=== PATIENT | male | born 1950 | race Caucasian/White ===

== ENCOUNTER 2020-03-02 05:58 | Inpatient (IN) ==
--- NOTE | 2020-02-16 15:54 | PAT Medication Instructions ---
Medication Instructions Date of Service February 16, 2020 Home Medications B-complex with vitamin C 1 tab PO DAILY allopurinol 300 mg tablet 300 mg PO QAM aspirin 81 mg tablet,delayed release 81 mg PO QAM lisinopril 20 mg tablet 20 mg PO QAM simvastatin 20 mg tablet 20 mg PO HS ASK your prescriber and surgeon aspirin 81 mg tablet,delayed release 81 mg PO QAM DO NOT take the morning of surgery B-complex with vitamin C 1 tab PO DAILY lisinopril 20 mg tablet 20 mg PO QAM Take morning of surgery With a small sip of water, OTHERWISE NOTHING TO EAT OR DRINK AFTER MIDNIGHT: allopurinol 300 mg tablet 300 mg PO QAM Take evening before surgery simvastatin 20 mg tablet 20 mg PO HS Other Notes If you have any questions please call us at [phone] or [phone] or [phone] or [phone]
--- NOTE | 2020-02-17 13:49 | Anesthesiology Consultation ---
Date of Service February 17, 2020 Assessment & Plan (1) Encounter for pre-operative examination: COVID Status: As of 02/15 nurse assessment, patient denies travel to endemic area, known exposure/sick contacts, or symptoms of COVID19. Preoperative COVID19 testing to be completed prior to surgery. Chart Review Chart Review: Acceptable Risk for Surgery ([facility]) and Patient seen in Pre Admission Testing Teaching & Discussion Instructed NPO after midnight before surgery, except medications with 15 cc of water. Medication instructions provided according to the PAT guidelines. History Surgery Operation Date: 03/02/20 12:55 Proposed Procedures p C6 Corpectomy, Spinal Cord Monitoring - Gabe Farrell DO Height/Weight Height: 6 ft Weight: 125.8 kg Allergies Allergy/AdvReac Type Severity Reaction Status Date / Time indomethacin Allergy Intermediate "MAKES ME Verified 02/15/20 13:39 LOOPY" Medications Home Medications Medication Instructions Recorded Confirmed Last Taken B-complex with vitamin C 1 tab PO DAILY 11/15/19 02/15/20 Unknown allopurinol 300 mg tablet 300 mg PO QAM 11/15/19 02/15/20 Unknown aspirin 81 mg tablet,delayed 81 mg PO QAM 11/15/19 02/15/20 Unknown release lisinopril 20 mg tablet 20 mg PO QAM 11/15/19 02/15/20 Unknown simvastatin 20 mg tablet 20 mg PO HS 11/15/19 02/15/20 Unknown Past Medical History Medical History (Updated 02/20/20 @ 14:32 by Jose Carlos Hamilton) BPH (benign prostatic hyperplasia) Cervical spinal stenosis Cervical spine fracture (Chronic) Small nondisplaced avulsion from the joão-lateral margin of the C5-C6 facet Diabetes mellitus, type 2 DIET CONTROLLED Glaucoma Hx of gout Hyperlipidemia (Chronic) Hypertension Liver enzyme elevation Obesity Osteoarthritis Peripheral neuropathy PTSD (post-traumatic stress disorder) (Chronic) Umbilical hernia (Chronic) Exercise / Class Metabolic Activity II 4-5 Yardwork/Stairs/Walk up hill Past Family History Family History Other No significant family history Past Surgical History Surgical History History of colonoscopy History of hernia surgery RT/LEFT INGUINAL History of tooth extraction Hx of knee surgery Hx of transurethral resection of prostate Hx of vasectomy Past Anesthesia History No Hx of Anesthesia Complications and No Family Hx of Anesthesia Complications History of PONV No Hx of PONV and No Hx of Motion Sickness STOP BANG Total 4 Social History Smoking Status: Former smoker tobacco type: cigarettes Do You Dip or Chew Tobacco: No Smoking End Date: 20 YEARS AGO Hx Alcohol Use: Yes Alcohol type: hard liquor alcohol intake frequency: 0-2 drinks per day Alcohol Intake Frequency Comment: 3 DRINKS DAILY Hx Substance Use: No Review of Systems Pt denies any recent chest pain, shortness of breath, palpitations, cough, fever or URI. Physical Exam Vital Signs BP: 133/83 P: 82bpm SPO2: 95% RA T: 98.2 F R: 16 ENMT Mouth: + dentition abnormality (few missing molars) and + macroglossia; no chipped teeth and no loose teeth Thyromental Distance: < 3.5 Finger Breadths (3? difficult to palpate with soft cervical collar on) Mallampati Class: III Neck + limited neck extension and + facial hair (small mustache) Patient wearing soft cervical collar. Due to h/o fracture and pt's neck pain, did not ask him to extend neck. He states ROM is limited. Respiratory normal respiratory effort Auscultation: lungs clear to auscultation bilaterally Cardiovascular Rate/Rhythm: regular rate and regular rhythm Heart Sounds: no murmur Extremities: no edema Testing Laboratory Results 02/17/20 14:03 02/17/20 14:03 PT 10.3 Seconds (9.0-12.0) 02/17/20 14:03 INR 1.0 (0.9-1.1) 02/17/20 14:03 APTT 30.5 Seconds (21.0-31.0) 02/17/20 14:03 Urine Color Yellow 02/17/20 Unknown Urine Appearance Clear (Clear) 02/17/20 Unknown Urine pH 7.0 (4.5-7.5) 02/17/20 Unknown Ur Specific Hugo 1.018 (1.000-1.030) 02/17/20 Unknown Urine Protein Negative (Negative) 02/17/20 Unknown Urine Glucose (UA) 2+ (Negative) H 02/17/20 Unknown Urine Ketones Trace (Negative) H 02/17/20 Unknown Urine Nitrite Negative (Negative) 02/17/20 Unknown Ur Leukocyte Esterase Trace (Negative) H 02/17/20 Unknown Urine WBC (Auto) 5-10 /hpf (0-5) H 02/17/20 Unknown Urine RBC (Auto) 0-4 /hpf (0-4) 02/17/20 Unknown U Hyaline Cast (Auto) 1-5 /lpf (0-5) 02/17/20 Unknown U Epithel Cells (Auto) 5-10 /lpf (0-5) H 02/17/20 Unknown Urine Bacteria (Auto) Negative (Negative) 02/17/20 Unknown Blood Type O Positive 02/17/20 14:03 Antibody Screen NEGATIVE 02/17/20 14:03 Chest X-Ray Date: 02/17/20 Findings: + NAD
--- NOTE | 2020-02-17 14:32 | XRay Report ---
TWO VIEW CHEST CLINICAL HISTORY: Preoperative examination. FINDINGS: PA and lateral chest radiographs are compared to chest x-ray and chest CT dated 08/28/2007. The heart is mildly enlarged noting atherosclerotic calcification of the thoracic aorta. The pulmona ry vasculature is noncongested. There is bibasilar scarring/atelectasis. No airspace consolidation or pleural effusion is identified. There is no pneumothorax. The skeletal structures are osteopenic. Th e bony thorax appears intact. Degenerative change is seen throughout the thoracic spine. IMPRESSION: No active disease in the chest. ACT 112: Negative or not required by law. Electronically signed by: James Walton M.D. 02/17/2020 2:31 PM
[2020-02-17 16:01] LABS: Basophils # (auto) 0.03 K/uL (0-0.2); Basophils % (auto) 0.3 %; Eosinophils # (auto) 0.21 K/uL (0-0.5); Eosinophils % (auto) 2.4 %; Hematocrit (blood only) 45.8 % (42-52); Hemoglobin 15.7 g/dL (14.0-18.0); Immature Granulocytes # (auto) 0.04 K/uL (0.00-0.02); Immature Granulocytes % (auto) 0.5 %; Lymphocytes # (auto) 2.24 K/uL (1.2-3.4); Lymphocytes % (auto) 25.4 %; Mean Corpuscular Hgb Conc 34.3 g/dL (32-36); Mean Corpuscular Volume 87.6 fL (80-100); Mean Platelet Volume 10.4 fL (7.4-10.4); Monocytes # (auto) 0.58 K/uL (0.11-0.59); Monocytes % (auto) 6.6 %; Neutrophils # (auto) 5.71 K/uL (1.4-6.5); Neutrophils % (auto) 64.8 %; Platelet Count 255 K/uL (130-400); RDW Coefficient of Variation 13.4 % (11.5-14.5); Red Blood Count 5.23 M/uL (4.7-6.1); White Blood Count 8.81 K/uL (4.8-10.8)
[2020-02-17 16:05] LABS: Appearance Urine Clear (Clear); Bacteria Urine Automated Negative (Negative); Bilirubin Urine Negative (Negative); Blood Urine Negative (Negative); Color Urine Yellow; Glucose Urine UA 2+ (Negative); Ketones Urine Trace (Negative); Leukocyte Esterase Urine Trace (Negative); Nitrite Urine Negative (Negative); Protein Urine Negative (Negative); RBC Urine Automated 0-4 /hpf (0-4); Specific Gravity Urine 1.018 (1.000-1.030); Urobilinogen Urine Negative (Negative)
[2020-02-17 16:08] LABS: BUN Creatinine Ratio 14.4 (10-20); Creatinine Clr Calc Pharmacy 112.1 ml/min; Est GFR (African American) 102.8; Est GFR (Non-African American) 88.7; Potassium 3.6 mmol/L (3.5-5.1)
[2020-02-17 16:10] LABS: Partial Thromboplastin Ratio 1.1; Partial Thromboplastin Time 30.5 Seconds (21.0-31.0); Prothrombin Time 10.3 Seconds (9.0-12.0)
[2020-03-02] MEDS ORDERED: LR 15ML/HR IV SCH (06:00)
[2020-03-02] MEDS ORDERED: CeleBREX 200 MG CAP PO SCH (06:00)
[2020-03-02] MEDS ORDERED: ACETAMINOPHEN 500 MG TAB PO SCH (06:00)
[2020-03-02] MEDS ORDERED: CEFAZOLIN 3000MG 72.5 ML IV SCH (06:00)
[2020-03-02] MEDS ORDERED: GABAPENTIN 300 MG CAP PO SCH (06:00)
[2020-03-02] MEDS ORDERED: PROMETHAZINE HCL 6.25 MG in SODIUM CHLORIDE 0.9% 50 ML IV PRN (06:50)
[2020-03-02] MEDS ORDERED: HYDROmorphone INJ 1 MG/ML SYRINGE IV PRN ×2 (06:50→11:47)
[2020-03-02] MEDS ORDERED: ONDANSETRON INJ 2 MG/ML 2 ML VIAL IV PRN ×2 (06:50→11:47)
[2020-03-02] MEDS ORDERED: LABETALOL HCL IV 5 MG/ML 20ML IV PRN (06:50)
[2020-03-02] MEDS ORDERED: ATROPINE SULFATE 0.1 MG/ML 10ML SYR IV PRN (06:50)
[2020-03-02] MEDS ORDERED: PROPOFOL IV EMULSION 10 MG/ML 100 ML VIAL IV ONE (06:55)
[2020-03-02] MEDS ORDERED: LIDOCAINE HCL 2% 2 ML VIAL/AMP(20MG/ML) INFIL ONE (07:00)
[2020-03-02] MEDS ORDERED: NEOSTIGMINE METHYLSULFATE 1 MG/ML 10ML VIAL ONE (07:00)
[2020-03-02] MEDS ORDERED: ePHEDrine sulfate 50 MG/ML SYR ONE (07:00)
[2020-03-02] MEDS ORDERED: GLYCOPYRROLATE 0.2 MG/ML VIAL ONE (07:00)
[2020-03-02] MEDS ORDERED: PHENYLEPHRINE 100MCG/ML 5ML SYR ONE (07:00)
[2020-03-02] MEDS ORDERED: PROPOFOL IV EMULSION 10 MG/ML 20 ML VIAL IV ONE ×2 (07:00→08:41)
[2020-03-02] MEDS ORDERED: BACITRACIN INJ 50,000 UNIT VIAL ONE (07:00)
[2020-03-02] MEDS ORDERED: LARYING-O-JET KIT (LTA) ONE (07:00)
[2020-03-02] MEDS ORDERED: DEXAMETHASONE SOD INJ 4 MG/ML VIAL ONE (07:00)
[2020-03-02] MEDS ORDERED: ONDANSETRON INJ 2 MG/ML 2 ML VIAL ONE (07:00)
[2020-03-02] MEDS ORDERED: MIDAZOLAM HCL 1 MG/ML 2ML VIAL ONE (07:00)
[2020-03-02] MEDS ORDERED: ROCURONIUM BROMIDE 10 MG/ML 5 ML VIAL IV ONE (07:00)
[2020-03-02] MEDS ORDERED: fentaNYL citrate 100 MCG/2 ML VIAL ONE (07:01)
--- NOTE | 2020-03-02 07:19 | History & Physical Bridge Note ---
Date of Service March 02, 2020 History & Physical Bridge Note I have examined the patient, reviewed the History & Physical and in the interval since the performance of the History & Physical I have noted the following changes of clinical significance: no changes noted
--- NOTE | 2020-03-02 07:20 | History & Physical Report ---
Date of Service March 02, 2020 Assessment & Plan (1) Myelopathy concurrent with and due to spinal stenosis of cervical region: C6 corpectomy Present on Admission?: Yes History of Present Illness Chief Complaint: Neck and arm pain Primary Care Provider: Mony Perez PA-C This is a 6-year-old male who presents with worsening neck and arm symptoms after failing course of nonoperative care is here for surgical invention. Allergies Allergy/AdvReac Type Severity Reaction Status Date / Time indomethacin Allergy Intermediate "MAKES ME Verified 03/02/20 06:43 LOOPY" Home Medications Home Medications Medication Instructions Recorded Confirmed Type B-complex with vitamin C 1 tab PO DAILY 11/15/19 03/02/20 History allopurinol 300 mg tablet 300 mg PO QAM 11/15/19 03/02/20 History aspirin 81 mg tablet,delayed 81 mg PO QAM 11/15/19 03/02/20 History release lisinopril 20 mg tablet 20 mg PO QAM 11/15/19 03/02/20 History simvastatin 20 mg tablet 20 mg PO HS 11/15/19 03/02/20 History Past Med/Surg History Family History Other No significant family history Social History Preferred Language: Macanese Communication Ability: Effective Visual Impairment: Limited Hearing Ability: Normal Sewer Pipe Offbearer Required: No Beliefs That Will Affect Care: None marital status: Current Living Situation: Spouse current occupational status: retired Feels Safe at Home: Yes Safety Concerns: Feels Safe At This Time Smoking Status: Former smoker Tobacco Type: cigarettes ; Do You Dip or Chew Tobacco: No ; Smoking End Date: 20 YEARS AGO ; Second Hand Exposure: Yes ; Tobacco Cessation Education Requested by Patient: No Hx Alcohol Use: Yes Alcohol type: hard liquor Alcohol type Comment: bourbon Alcohol Intake Frequency: Daily Hx Substance Use: No Physical Exam Physical Exam: Patient is alert and oriented with evidence of upper motor neuron signs. Heart regular rate and rhythm. Lungs clear to auscultation. Results & Data Vital Signs (Past 12 Hours) Vital Signs Temp Pulse Resp BP Pulse Ox 03/02/20 06:58 37.0 C 87 18 168/98 H 96
[2020-03-02] MEDS ORDERED: HYDROmorphone INJ 2 MG/ML SYR/VIAL ONE (08:05)
[2020-03-02] MEDS ORDERED: FLOSEAL HEMOSTATIC MATRIX 10ML TOP ONE (08:24)
--- NOTE | 2020-03-02 10:09 | Operative Report ---
Post Operative Report Pre & Post Diagnosis Operation Date: 03/02/20 07:45 Pre-Op Diagnosis: Cervical spinal stenosis with myelopathy Post-Op Diagnosis: Same I identified the patient and participated in the time-out.: Yes Procedure Operation Date: 03/02/20 07:45 Actual Procedures #1 anterior cervical corpectomy with bilateral foraminotomies C6. #2 anterior cervical arthrodesis C5-C7. #3 placement peek cage 25 mm in height at C5-C7. #4 placement locally harvested morselized autograft combined with DBM and interbody cage. #5 application of 5 complete screws from C5-C6. Surgeon Gabe Farrell, DO Manager Business Operations Bib Cruz Estimated Blood Loss 25 Findings See Below Patient is 6 foot tall weighing over 126 kg with a BMI in excess of 37. The patient's body habitus did create significant technical difficulty from patient positioning to exposure to the operative procedure. He required her deepest retractors and longest instruments in order to perform his procedure this added at least 50% increase to the operative time. Specimens None Indications This is a 69-year-old male that presents with above-mentioned diagnosis after noting decline in neurologic function we are here for the above-mentioned procedure. Description of Procedure Patient was met with identified informed consent obtained. Patient was then taken to the operative suite underwent an patient placed in a supine position Trevor table met head Monae grease maker head. All bony prominences well-padded eyes inspected to ensure no external pressure placed upon them. This point the anterior cervical spine was prepped and draped in normal sterile fashion. With assistance of fluoroscopy identified the C6 vertebral body a transverse incision was placed on the right anterior aspect of the cervical spine overlying his region. Sharp dissection with assistance of bipolar electrocautery was performed until exposing the anterior cervical spine from C5-C7. Self-retaining retractors were placed. Then performed a complete discectomy of C5-6 out to the uncovertebral joints bilaterally followed by C6-7. [place] distracting pins were utilized to assist in visualization. I then performed a complete corpectomy of C6 including removal of all posterior annular fibers longitudinal ligament bilateral foraminotomies at the see 5 6 and 6 7 levels. After complete decompression endplates were burred to subcortical bleeding bone and a 25 mm peek cage filled with locally harvested morselized autograft and DBM tapped in position. Distracting apparatus was removed all anterior osteophytes burred to a smooth cortical surface of 5 complete and screws applied with the assistance of fluoroscopy. The incision was then copiously irrigated explored to ensure no damage to surrounding structures remaining bleeding. A 15 round DELFINA drain was then inserted. Incision was closed with 2 Vicryl in the fashion of 4 Monocryl for final skin closure. Steri-Strip sterile dressing was placed. Patient waken taken PACU stable condition. Please note spinal cord monitoring was last that t he procedure no changes noted. Lastly Bib Cruz was present at the entire procedure involved the patient positioning complex portions of the surgery and final skin closure. I attest to the content of the Intraoperative Record and any orders documented therein. Any exceptions are noted below.
--- NOTE | 2020-03-02 10:32 | Fluoroscopy Report ---
FL cervical 2-3V CLINICAL HISTORY: CORPECTOMY C6 COMPARISON STUDY: None. FLUOROSCOPY TIME: 12 seconds. FINDINGS: 2 fluoroscopic spot images of the cervical spine. Anterior cervical discectomy and fusion f rom C5 through C7 with a C6 corpectomy and bone graft. The hardware appears intact. IMPRESSION: Fluoroscopy provided for C5-C7 ACDF. ACT 112: Negative or not required by law. Electronically signed by: Madan Ruano M.D. 03/02/2020 10:30 AM
--- NOTE | 2020-03-02 11:29 | Anesthesiology Progress Note ---
Date of Service March 02, 2020 Anesthesia Post Procedure Vital Signs Vital Signs: Temp Pulse Pulse Resp BP BP Pulse Ox 03/02/20 11:20 36.8 C 78 16 128/84 96 03/02/20 11:10 78 16 117/78 96 03/02/20 11:00 70 16 118/88 96 03/02/20 10:50 36.8 C 73 16 124/85 96 03/02/20 10:40 70 16 136/92 97 03/02/20 10:30 67 16 141/86 H 97 03/02/20 10:23 36.2 C L 72 16 142/88 H 97 03/02/20 06:58 37.0 C 87 18 168/98 H 96 Pain Intensity Bilateral Neck: Pain Intensity: 5 Transfer of Care Handoff Completed per policy Notes Mental Status: alert / awake / arousable Patient Amnestic to Procedure: Yes Nausea / Vomiting: adequately controlled Pain: adequately controlled Airway Patency, RR, SpO2: stable & adequate BP & HR: stable & adequate Hydration State: stable & adequate Anesthetic Complications: no major complications apparent
[2020-03-02] MEDS ORDERED: HYDROmorphone INJ 0.5 MG/0.5 ML SYR IV PRN (11:47)
[2020-03-02] MEDS ORDERED: NALOXONE HCL 0.4 MG/1 ML VIAL/CARP IV PRN (11:47)
[2020-03-02] MEDS ORDERED: LORazepam 0.5 MG/1 ML VIAL IV PRN (11:47)
[2020-03-02] MEDS ORDERED: DO NOT ADMINISTER PNEUMOCOCCAL VACCINE PRN (11:47)
[2020-03-02] MEDS ORDERED: ACETAMINOPHEN 1,000 MG/100 ML VIAL IV PRN (11:47)
[2020-03-02] MEDS ORDERED: OXYCODONE HCL IR 5 MG TAB (IMMEDIATE RELEASE) PO PRN (11:47)
[2020-03-02] MEDS ORDERED: DEXAMETHASONE SOD PHOSPHATE 8 MG in SYRINGE 0 ML IV PRN (11:47)
[2020-03-02] MEDS ORDERED: METOCLOPRAMIDE HCL INJ 5 MG/ML 2 ML VIAL IV PRN (11:47)
[2020-03-02] MEDS ORDERED: SOD PHOSPHATE/SOD BIPHOSPHATE ENEMA 132 ML BTL PR PRN (11:47)
[2020-03-02] MEDS ORDERED: ACETAMINOPHEN 500 MG TAB PO PRN (11:47)
[2020-03-02] MEDS ORDERED: PROMETHAZINE HCL 12.5 MG in SODIUM CHLORIDE 0.9% 50 ML IV PRN (11:47)
[2020-03-02] MEDS ORDERED: MAGNESIUM HYDROXIDE SUSP 30 ML UDC PO PRN (11:47)
[2020-03-02] MEDS ORDERED: DO NOT ADMINISTER FLU VACCINE PRN (11:47)
[2020-03-02] MEDS ORDERED: ONDANSETRON 4 MG OD TAB PO PRN (11:47)
[2020-03-02] MEDS ORDERED: FAMOTIDINE 20 MG TAB PO PRN (11:47)
[2020-03-02] MEDS ORDERED: TRAMADOL HCL 50 MG TABLET PO PRN (11:47)
[2020-03-02] MEDS ORDERED: LORazepam 0.5 MG TAB PO PRN (11:47)
[2020-03-02] MEDS ORDERED: ALUMINUM/MAGNESIUM SUSP 30 ML UDC PO PRN (11:47)
[2020-03-02] MEDS ORDERED: RACEPINEPHRINE 2.25% NEBU SOLN 0.5 ML VIAL INH PRN (11:47)
[2020-03-02] MEDS: SODIUM CHLORIDE 0.9% 1000ML 1,000 ML IV SCH ×2 (12:15→18:19)
--- NOTE | 2020-03-02 12:17 | Consultation ---
Date of Consultation March 02, 2020 Assessment & Plan (1) S/P spinal surgery: Post op day# 0 S/P anterior cervical corpectomy with bilateral foraminotomies C6, anterior cervical arthrodesis C5-C7 with case placement by Dr Jami BOWERS#25ml -pain management per ortho -wound management per ortho -PT/OT as appropriate -DVT prophylaxis per ortho -bowel regimen -monitor H&H for acute blood loss anemia; pre-op Hgb: 15.7 (2) History of hypertension: Stable -Continue lisinopril with holding parameters (3) Diabetes mellitus, type 2: Diet controlled post op BS -Novolog sliding scale per protocol, anticipate will need tightened when pt resumes full diet -A1c in AM (4) Hyperlipidemia: -Continue simvastatin (5) Alcohol use: 3 drinks a day. No h/o ETOH withdrawal -Monitor for alcohol withdrawal -Ativan prn (6) Hx of gout: -Continue allopurinol DVT Prophylaxis -SCDs per ortho Disposition per primary service Follows with Mony Perez at [facility] for routine care Pt was seen and care coordinated with Dr Oquendo. See addendum Pt will be followed by Dr Eng starting 03/03/2020 Thank you for this consultation. We will follow the patient with you during their hospital stay. You can reach a member of the [facility] Hospitalist Team 23/03 via pager @ . Supervising Physician Co-Signing Physician Notes I, Dr. Afshin Oquendo, have seen and examined the patient SamiHiginio with physician anesthesia assistant and would like to comment that on Physical Exam General: no acute distress Neck: neck in brace and anterior neck with DELFINA drain Chest: regular rate Lung: clear to auscultation, no wheezing Abdomen: soft, nontender, positive bowel sounds Neuro/Extremities: able to move all extremities ASSESSMENT AND PLAN -This is a patient of Dr. Farrell with pre-op society Cervical spinal stenosis with myelopathy and status post cervical spine surgery on 03/02/2020 with hospitalist medicine asked to follow as medicine consult service (s/p anterior cervical corpectomy with bilateral foraminotomies C6. anterior cervical arthrodesis C5-C7. placement peek cage 25 mm in height at C5-C7. placement locally harvested morselized autograft combined with DBM and interbody cage. application of 5 complete screws from C5-C6.) -type 2 diabetes mellitus without organizational development consultant current of insulin: hyperglycemia today likely related to steroids given in surgery, give sliding scale insulin and check Hemoglobin A1c. patient reports he has not yet been started on any diabetes medications by [place] primary care doctor recently although there were some discussions of possible metformin use at home in near future -agree with other assessment and plans as per physician anesthesia assistant in regards to Alcohol use (regular use with dinner nightly at home around 3 drinks per night) and Hypertension -My colleague Dr. Eng will be taking over the care of the patient as hospitalist center consultant starting on 03/03/2020 History of Present Illness Requesting Physician: Dr Farrell Reason for Consultation: Post op medical consultation Attending Physician: Gabe Farrell, History of Present Illness Pt is 69 y/o M with PMH HTN, HLD, diet controlled DM II, PTSD, gout, obesity, neuropathy, BPH seen in medical consultation s/p anterior cervical corpectomy with bilateral foraminotomies C6, anterior cervical arthrodesis C5-C7 with case placement today by Dr Farrell. Post op pt reports doing well, pain controlled. Post op pt reports improvement of his upper extremity symptoms compared to prior to surgery. Denies nausea, vomiting, fever/chills, diaphoresis, RAMIREZ, dizziness, CP, SOB, cough, sore throat, choking, rhinorrhea, abdominal pain, extremity weakness, extremity edema, rashes, urinary symptoms. Allergies Allergy/AdvReac Type Severity Reaction Status Date / Time indomethacin Allergy Intermediate "MAKES ME Verified 03/02/20 06:43 LOOPY" chlorhexidine Allergy Hives Verified 03/02/20 07:35 Home Medications Home Medications Medication Instructions Recorded Confirmed Type B-complex with vitamin C 1 tab PO DAILY 11/15/19 03/02/20 History allopurinol 300 mg tablet 300 mg PO QAM 11/15/19 03/02/20 History aspirin 81 mg tablet,delayed 81 mg PO QAM 11/15/19 03/02/20 History release lisinopril 20 mg tablet 20 mg PO QAM 11/15/19 03/02/20 History simvastatin 20 mg tablet 20 mg PO HS 11/15/19 03/02/20 History Patient History Medical History BPH (benign prostatic hyperplasia) Cervical spinal stenosis Cervical spine fracture (Chronic) Small nondisplaced avulsion from the joão-lateral margin of the C5-C6 facet Diabetes mellitus, type 2 DIET CONTROLLED Glaucoma Hx of gout Hyperlipidemia (Chronic) Hypertension Liver enzyme elevation Obesity Osteoarthritis Peripheral neuropathy PTSD (post-traumatic stress disorder) (Chronic) Umbilical hernia (Chronic) Surgical History History of colonoscopy History of hernia surgery RT/LEFT INGUINAL History of tooth extraction Hx of knee surgery Hx of transurethral resection of prostate Hx of vasectomy Family History Other No significant family history Social History (Updated 03/02/20 @ 12:22 by Edwige Kelley PA-C) Preferred Language: Setswana Communication Ability: Effective Visual Impairment: Limited Hearing Ability: Normal Wireless Technician Required: No Beliefs That Will Affect Care: None marital status: Current Living Situation: Spouse current occupational status: retired Feels Safe at Home: Yes Safety Concerns: Feels Safe At This Time Smoking Status: Former smoker Tobacco Type: cigarettes ; Do You Dip or Chew Tobacco: No ; Smoking End Date: 20 YEARS AGO ; Second Hand Exposure: Yes ; Tobacco Cessation Education Requested by Patient: No Hx Alcohol Use: Yes (3 drinks bourbon a day) Alcohol type: hard liquor Alcohol type Comment: bourbon Alcohol Intake Frequency: Daily Hx Substance Use: No Review of Systems Review of Systems: All systems reviewed & are unremarkable except as noted in HPI & below Physical Exam Physical Exam: General: no distress, obese Head: normocephalic, atraumatic Eyes: conjunctiva non-injected, anicteric ENT: normal inspection external ears, nose, mucous membranes moist Neck: In C-Collar, trachea midline, anterior neck with surgical dressing in place and is dry, DELFINA drain in place with serosanguineous drainage Lungs: clear, no respiratory distress, no wheezing/rhonchi/rales CV: RRR, no murmur, no pretibial edema Abd: normal BS, soft, non-tender Ext: no cyanosis, no calf tenderness; bilateral pedal pushes and pulls intact, bilateral hand inspector strength intact, sensation to light touch intact Neuro: A&O x 3, no focal deficits noted, normal affect Skin: warm, dry Results & Data ([facility]) Vital Signs (Past 12 Hours) Vital Signs Temp Pulse Pulse Resp BP BP Pulse Ox 03/02/20 11:46 78 16 96 03/02/20 11:35 37.0 C 78 18 132/85 97 03/02/20 11:20 36.8 C 78 16 128/84 96 03/02/20 11:10 78 16 117/78 96 03/02/20 11:00 70 16 118/88 96 03/02/20 10:50 36.8 C 73 16 124/85 96 03/02/20 10:40 70 16 136/92 97 03/02/20 10:30 67 16 141/86 H 97 03/02/20 10:23 36.2 C L 72 16 142/88 H 97 03/02/20 06:58 37.0 C 87 18 168/98 H 96 Pulse Ox 03/02/20 11:46 03/02/20 11:35 97 03/02/20 11:20 03/02/20 11:10 03/02/20 11:00 03/02/20 10:50 03/02/20 10:40 03/02/20 10:30 03/02/20 10:23 03/02/20 06:58
[2020-03-02] MEDS ORDERED: LORazepam 1 MG TAB PO PRN (12:23)
[2020-03-02] MEDS ORDERED: GLUCOSE 40% GEL 15 GM TUBE PO PRN (12:27)
[2020-03-02] MEDS ORDERED: DEXTROSE 50% 50 ML SYRINGE IV PRN (12:27)
[2020-03-02] MEDS ORDERED: GLUCAGON FOR INJ 1 MG VIAL SQ PRN (12:27)
[2020-03-02] MEDS ORDERED: GLUCOSE 10 TABS/TUBE PO PRN (12:27)
[2020-03-02] MEDS ORDERED: CARBOHYDRATES FOR HYPOGLYCEMIA PO PRN (12:27)
[2020-03-02] MEDS: DEXAMETHASONE SOD PHOSPHATE 6 MG in SYRINGE 0 ML IV SCH ×2 (13:23→23:50)
[2020-03-02] MEDS: CEFAZOLIN 2000MG 2,000 MG/15 ML SYR IV SCH (15:57)
[2020-03-02] MEDS: INSULIN ASPART 100 UNITS/ML 3 ML PEN SC SCH ×2 (18:38→21:37)
[2020-03-02] MEDS ORDERED: SODIUM CHLORIDE 0.9% 1000ML 1,000 ML IV ONE (20:27)
[2020-03-02] MEDS ORDERED: lisinopriL 20 MG TAB PO SCH (20:30)
[2020-03-02] MEDS ORDERED: DOCUSATE SODIUM/SENNA 50/8.6MG TAB PO SCH (21:00)
[2020-03-02] MEDS ORDERED: SIMVASTATIN 20 MG TAB PO SCH (21:00)
[2020-03-02] MEDS ORDERED: INSULIN GLARGINE SOLOSTAR 100 UNITS/ML 3 ML PEN SC STA (23:34)
[2020-03-03] MEDS: CEFAZOLIN 2000MG 2,000 MG/15 ML SYR IV SCH (00:22)
[2020-03-03] MEDS ORDERED: lisinopriL 20 MG TAB PO SCH ×2 (05:15→09:00)
[2020-03-03] MEDS: DEXAMETHASONE SOD PHOSPHATE 6 MG in SYRINGE 0 ML IV SCH (05:45)
[2020-03-03 05:53] LABS: Hematocrit (blood only) 47.4 % (42-52); Hemoglobin 15.7 g/dL (14.0-18.0); Mean Corpuscular Hemoglobin 29.5 pg (25-34); Mean Corpuscular Hgb Conc 33.1 g/dL (32-36); Mean Corpuscular Volume 89.1 fL (80-100); Mean Platelet Volume 10.1 fL (7.4-10.4); Platelet Count 256 K/uL (130-400); RDW Coefficient of Variation 13.8 % (11.5-14.5); RDW Standard Deviation 44.8 fL (36.4-46.3); Red Blood Count 5.32 M/uL (4.7-6.1); White Blood Count 9.69 K/uL (4.8-10.8)
[2020-03-03 06:22] LABS: BUN Creatinine Ratio 9.4 (10-20); Calcium 9.1 mg/dl (8.5-10.1); Creatinine Clr Calc Pharmacy 97.3 ml/min; Est GFR (African American) 91.3; Est GFR (Non-African American) 78.8; Potassium 4.1 mmol/L (3.5-5.1)
[2020-03-03 07:23] LABS: Estimated Average Glucose 160 mg/dl; Hemoglobin A1C 7.2 % (4.5-5.6)
[2020-03-03] MEDS: INSULIN ASPART 100 UNITS/ML 3 ML PEN SC SCH (08:35)
[2020-03-03] MEDS ORDERED: VITAMIN B COMPLEX TAB PO SCH (09:00)
[2020-03-03] MEDS ORDERED: ASPIRIN 81 MG ECTAB PO SCH (09:00)
[2020-03-03] MEDS ORDERED: allopurinoL 300 MG TAB PO SCH (09:00)
[2020-03-03] MEDS ORDERED: INSULIN GLARGINE SOLOSTAR 100 UNITS/ML 3 ML PEN SC SCH (09:00)
[2020-03-03] MEDS ORDERED: POLYETHYLENE (MIRALAX) 17 GM PACK PO SCH (10:00)
[2020-03-04] MEDS ORDERED: bisacodyL 10 MG SUPP PR PRN (10:09)
--- NOTE | 2020-03-06 14:30 | Discharge Summary ---
Date of Service March 06, 2020 Admission HPI Per Admitting Provider This is a 6-year-old male who presents with worsening neck and arm symptoms after failing course of nonoperative care is here for surgical invention. Principal Diagnosis Cervical spinal stenosis with myeloradiculopathy Discharge Data Allergies Allergy/AdvReac Type Severity Reaction Status Date / Time indomethacin Allergy Intermediate "MAKES ME Verified 03/02/20 06:43 LOOPY" chlorhexidine Allergy Hives Verified 03/02/20 07:35 Consultations 03/02/20 11:47 Consult Hospitalist Routine Procedures Performed Operation Date: 03/02/20 07:45 Actual Procedures p C6 Corpectomy, Spinal Cord Monitoring(Not Applicable) - Gabe Farrell DO Ordered Studies 03/02/20 07:45 FL cervical 2-3V Routine FL fluoroscopy <1hr Routine Hospital Course (1) Cervical spinal stenosis: Patient underwent anterior cervical corpectomy and fusion tolerated this well was taken to the orthopedic for postoperative. Postop day 1 he was swallowing well no hoarseness excellent strength testing pain well controlled DELFINA drain decreasing appropriately. Subsequent discharge home. Discharge orders and instructions from the chart for further view. Total Time Total Time Spent Total Time Spent (In Minutes): 20 minutes Discharge Plan Discharge Items Patient Disposition: Home - Self-Care Reason For Visit: Spinal Stenosis, Cervical Region Discharge Diagnosis: Cervical spinal stenosis with myelopathy Activity: As commented below Non-emergency contact: Primary Care Provider Call non-emergency contact if: you have any medication questions Follow-up/Referrals: Mony Perez PA-C [Primary Care Provider] - Diet: Regular Addtl Attending Provider Instructions: ACTIVITY RECOMMENDATIONS: SELF CARE INSTRUCTIONS AFTER CERVICAL FUSIONS 1. No smoking. Smoking drastically decreases the chance of a solid fusion. 2. No bending, lifting more than 5 pounds, or twisting (roll like a log when turning in bed). 3. You may shower 3 days after surgery. Thoroughly dry wound. Do not soak in the tub. 4. Cervical collar: Must be worn at all times including sleeping. You may remove the brace only to bath, eat and if you are sitting in a recliner. 5. Please walk as much as you can for exercise. Gradually increase the distance that you walk as your endurance increases. SPECIAL CARE INSTRUCTIONS: VERY IMPORTANT TO READ AND REVIEW A. Do not take any anti-inflammatory medications (i.e. Indocin, Advil, Aspirin, Naprosyn, Aleve, Motrin, etc.) as these may inhibit the chance of a solid fusion. Tylenol is okay to take. B. Your surgical incision has been closed with a cosmetic suture under the skin that will dissolve in about 6 weeks. In 14 days, you can use a pair of clean scissors and cut the suture that is left outside of the skin at the ends of your incision. C. Complications are uncommon, but please contact us if you have any signs or symptoms of: 1. wound infection (fever higher than 102.5 degrees F, redness, separation of wound, drainage, or increasing pain from the incision) 2. blood clots in legs (pain, swelling, redness and warmth in legs) 3. urinary tract infection (fever higher than 102.5 degrees, burning upon urination or increased frequency of urination) 4. nerve problems (inability to walk on your toes or heels, numbness, loss of bowel or bladder control) 5. any other symptoms that concern you. D. Please call the office at if you have any concerns or questions about your operation or recovery. MANAGING PAIN AFTER SPINAL SURGERY 1. Narcotic medication is intended for short-term use and will be provided for surgical pain. Surgical pain usually lasts for a period of 4-6 weeks. Narcotic medication includes Percocet, Vicodin, Darvocet, Tylenol #3 or Lortab. 2. Longer-term pain is more appropriately treated with non-narcotic medication such as Tylenol ES. 3. Muscle spasm is not appropriately treated with narcotics. Muscle relaxers such as Soma, Flexeril or Skelaxin can be used along with Tylenol ES. 4. Remember that we all live with some "aches and pains". This is not unusual or uncommon after an injury or as we get older. 5. We will provide appropriate medication within the normal guidelines of their prescribed use. We will also be very cautious and aware of potential abuse and extended duration of patients' medication needs. 6. Please allow 2-3 days to process refills. Prescriptions will not be mailed but must be picked up at the office. FOLLOW UP VISIT: Keep your scheduled follow-up appointment. Any questions, please call the office at . Pending Studies at Discharge: No Stand-Alone Forms: [facility], Smoking Cessation Medications and DC Order Prescriptions: New tramadol 50 mg tablet 50 mg PO Q6H PRN (Reason: pain, moderate) Qty: 20 RF: 0 oxycodone 5 mg tablet 5 mg PO Q6H PRN (Reason: pain, severe) Qty: 20 RF: 0 Continued allopurinol 300 mg tablet 300 mg PO QAM RF: 0 lisinopril 20 mg tablet 20 mg PO QAM RF: 0 simvastatin 20 mg tablet 20 mg PO HS RF: 0 B-complex with vitamin C Tablet 1 tab PO DAILY RF: 0 aspirin [Adult Aspirin Regimen] 81 mg tablet,delayed release (DR/EC) 81 mg PO QAM RF: 0 Discharge Orders: Discharge Order (Routine); Ordered 03/03/20 Ordered By: Gabe Farrell Admission Data Admit Date/Time: 03/02/20 10:09 Attending Provider: Gabe Farrell Admit Provider: Gabe Farrell Primary Care Provider: Mony Perez Other Providers: Afshin Oquendo ; Fredy Eng Other Interventions: Discharge Summary Assessment (RN) Last Done: 03/03/20 10:19 DC Date/Time DO NOT enter until pt leaves facility: 03/03/20 11:11
== END 2020-03-03 11:11 | disposition home or self-care (01) | DRG 472 ==
LOC: ASU 05:58 → 3E 10:09